=== PATIENT | male | born 1960 | race African-American/Black ===

== ENCOUNTER 2017-01-14 21:22 | Emergency (ER) | payer MEDICAID ==
[~2017-01-14] VITALS: Ht 175.3 cm; Wt 91.0 kg
[~2017-01-14 21:22] MED LIST: ASPI-1035 PO; OMEP20TA80 PO
[2017-01-14 22:04] LABS: BASOPHILS % 0.9 % (0.0-2.0); EOSINOPHILS % 0.5 % (0.0-5.0); HEMATOCRIT. 44.4 % (42.0-52.0); LYMPHOCYTES % 22.7 % (20.0-50.0); MEAN CORPUSCULAR HEMOGLOBIN 29.8 pg (28.0-32.0); MEAN CORPUSCULAR HGB CONC 33.9 g/dL (31.0-37.0); MEAN CORPUSCULAR VOLUME 88.1 fL (80.0-94.0); MEAN PLATELET VOLUME 8.8 fl (7.4-10.4); MONOCYTES % 5.9 % (2.0-8.0); PLATELET 267 x1000/uL (130-400); RED BLOOD CELL COUNT 5.04 mill/uL (4.7-6.1); RED CELL DISTRIBUTION WIDTH 12.7 % (11.6-14.6); WHITE BLOOD COUNT 14.6 x1000/uL (4.5-11.0)
[2017-01-14 22:15] LABS: ALANINE AMINOTRANSFERASE 31 IU/L (13-61); ALBUMIN 3.8 g/dL (3.4-5.0); ANION GAP 22; CALCIUM 9.5 mg/dL (8.5-10.1); CARBON DIOXIDE 22 mEq/L (21-32); CHLORIDE 95 mEq/L (98-107); INDEX HEMOLYSI 1 (1-3); INDEX ICTERIC 1 (1-4); INDEX LIPEMIC 1 (1-3); UREA NITROGEN BLOOD 11 mg/dL (7-21); eGFR > 60 mL/min (>60)
[2017-01-14] MEDS ORDERED: POTASSIUM CHLORIDE 40MEQ/30ML UDC PO SCH (23:00)
[2017-01-14] MEDS ORDERED: POTASSIUM CHLORIDE 40MEQ/30ML UDC PO ONE (23:00)
[2017-01-14] MEDS ORDERED: POTASSIUM CHLORIDE 20MEQ TABLET SR PO NR (23:19)
[2017-01-15] MEDS ORDERED: POTASSIUM CHLORIDE 40MEQ/30ML UDC PO ONE (01:00)
[2017-01-15] MEDS ORDERED: POTASSIUM CHLORIDE 20MEQ TABLET SR PO NR (01:15)
[2017-01-15 01:47] VITALS: BP 140/92
== END 2017-01-15 01:40 | disposition home or self-care (01) ==
LOC: ER 21:22
DX: R56.9 Unspecified convulsions (principal); E87.6 Hypokalemia; F10.20 Alcohol dependence, uncomplicated; I10 Essential (primary) hypertension; Z79.82 Long term (current) use of aspirin; Z79.899 Other long term (current) drug therapy
CPT/HCPCS: 36415; 70450; 80053; 85025; 93005; 99285; Z7610

== ENCOUNTER 2017-05-16 10:59 | Emergency (ER) | payer MEDICAID ==
[~2017-05-16] VITALS: Ht 175.3 cm; Wt 86.0 kg
[~2017-05-16 10:59] MED LIST changes: -ASPI-1035 PO; +ASPI-1159 PO
[2017-05-16 15:58] LABS: BASOPHILS % 0.2 % (0.0-2.0); EOSINOPHILS % 0.7 % (0.0-5.0); HEMATOCRIT. 42.9 % (42.0-52.0); HEMOGLOBIN. 15.1 g/dL (14.0-18.0); LYMPHOCYTES % 37.5 % (20.0-50.0); MEAN CORPUSCULAR VOLUME 88.2 fL (80.0-94.0); MEAN PLATELET VOLUME 8.2 fl (7.4-10.4); MONOCYTES % 9.3 % (2.0-8.0); NEUTROPHILS % 52.3 % (40.0-76.0); PLATELET 254 x1000/uL (130-400); RED BLOOD CELL COUNT 4.87 mill/uL (4.7-6.1); RED CELL DISTRIBUTION WIDTH 13.1 % (11.6-14.6)
[2017-05-16 16:12] LABS: CARBON DIOXIDE 27 mEq/L (21-32); CHLORIDE 96 mEq/L (98-107)
[2017-05-16] MEDS ORDERED: HYDROCHLOROTHIAZIDE 25MG TABLET PO ONE (18:15)
[2017-05-16 19:05] VITALS: BP 176/96
== END 2017-05-16 19:23 | disposition home or self-care (01) ==
LOC: ER 15:50
DX: I10 Essential (primary) hypertension (principal); Z88.8 Allergy status to other drugs, medicaments and biological substances; Z79.82 Long term (current) use of aspirin
CPT/HCPCS: 36415; 80053; 85025; 99284

== ENCOUNTER 2017-08-11 17:09 | Emergency (ER) | payer MEDICAID ==
[~2017-08-11] VITALS: Ht 175.3 cm; Wt 96.0 kg
[~2017-08-11 17:09] MED LIST changes: +OMEP20TA2 PO; -OMEP20TA80 PO
[2017-08-11] MEDS ORDERED: TETANUS, DIPHTHERIA, PERTUSSIS VAC/PF 0.5ML (>7YR OLD) IM ONE (18:00)
[2017-08-11] MEDS ORDERED: VANCOMYCIN 1 G PREMIX 200 ML IV SCH (18:30)
[2017-08-11] MEDS ORDERED: CLONIDINE 0.1MG TABLET PO ONE (20:15)
[2017-08-11 21:45] VITALS: BP 159/99
== END 2017-08-11 21:56 | disposition home or self-care (01) ==
LOC: ER 17:42
DX: L03.114 Cellulitis of left upper limb (principal); I10 Essential (primary) hypertension; Z79.82 Long term (current) use of aspirin; Z87.891 Personal history of nicotine dependence; Z88.8 Allergy status to other drugs, medicaments and biological substances; Z98.890 Other specified postprocedural states; W23.0XXA Caught, crushed, jammed, or pinched between moving objects, initial encounter; Y93.89 Activity, other specified; Y99.8 Other external cause status; Y92.89 Other specified places as the place of occurrence of the external cause
CPT/HCPCS: 73130; 90471; 90715; 96365; 99284; J3370; Z7610

== ENCOUNTER 2017-09-20 09:46 | Emergency (ER) | payer MEDICAID ==
[~2017-09-20] VITALS: Ht 175.3 cm; Wt 88.0 kg
[2017-09-20 11:54] VITALS: BP 127/89
== END 2017-09-20 12:16 | disposition home or self-care (01) ==
LOC: ER 09:48
DX: R42 Dizziness and giddiness (principal); R51 Headache; T42.0X5A Adverse effect of hydantoin derivatives, initial encounter; Y92.89 Other specified places as the place of occurrence of the external cause; G40.909 Epilepsy, unspecified, not intractable, without status epilepticus; I10 Essential (primary) hypertension; Z79.82 Long term (current) use of aspirin; Z88.8 Allergy status to other drugs, medicaments and biological substances; Z98.890 Other specified postprocedural states
CPT/HCPCS: 36415; 70450; 80185; 99285

== ENCOUNTER 2018-02-22 09:10 | Emergency (ER) | payer MEDICAID ==
[~2018-02-22] VITALS: Ht 175.3 cm; Wt 82.0 kg
[2018-02-22] MEDS ORDERED: ACETAMINOPHEN WITH CODEINE 300/30MG TABLET PO ONE (10:15)
[2018-02-22 11:55] VITALS: BP 128/79
== END 2018-02-22 11:58 | disposition home or self-care (01) ==
LOC: ER 11:15
DX: S20.212A Contusion of left front wall of thorax, initial encounter (principal); I10 Essential (primary) hypertension; E78.00 Pure hypercholesterolemia, unspecified; R56.9 Unspecified convulsions; Z88.8 Allergy status to other drugs, medicaments and biological substances; Z79.82 Long term (current) use of aspirin; Z87.891 Personal history of nicotine dependence; W11.XXXA Fall on and from ladder, initial encounter; Y93.89 Activity, other specified; Y92.89 Other specified places as the place of occurrence of the external cause; Y99.8 Other external cause status
CPT/HCPCS: 71101; 93005; 99284; Z7610

== ENCOUNTER 2019-11-05 14:40 | Emergency (ER) | payer MEDICAID ==
[~2019-11-05] VITALS: Ht 175.3 cm; Wt 82.0 kg
[~2019-11-05 14:40] MED LIST changes: -ASPI-1159 PO; +ASPI-1497 PO
[2019-11-05] MEDS ORDERED: IBUPROFEN 600MG TABLET PO ONE (17:30)
[2019-11-05 18:12] VITALS: BP 137/78
== END 2019-11-05 18:13 | disposition home or self-care (01) ==
LOC: ER 14:40
DX: M54.5 Low back pain (principal); I10 Essential (primary) hypertension; G40.909 Epilepsy, unspecified, not intractable, without status epilepticus; Z98.890 Other specified postprocedural states; Z79.82 Long term (current) use of aspirin; Z88.8 Allergy status to other drugs, medicaments and biological substances
CPT/HCPCS: 72100; 99283

== ENCOUNTER 2023-01-03 21:40 | Emergency (ER) | payer MEDICARE, MEDICAID ==
[~2023-01-03 21:40] MED LIST changes: -ASPI-1497 PO; +CYCL10TA21 PO; +FERR325T6 PO; +IBUP-2030 PO; +KEPP500 PO; +METF-873 PO; +METO-539 PO; -OMEP20TA2 PO; +PANT40TA51 MT; +PHEN100C12 PO; +PHEN50TA4 PO; +SIMV10TA97 PO; +SUCR1TAB MT
== END 2023-01-03 22:02 | disposition left against medical advice (07) ==
LOC: ER 21:40
DX: Z53.21 Procedure and treatment not carried out due to patient leaving prior to being seen by health care provider (principal)

== ENCOUNTER 2024-09-28 22:03 | Emergency (ER) | payer OTHER, MEDICAID ==
[~2024-09-28] VITALS: Ht 170.2 cm; Wt 82.0 kg
[~2024-09-28 22:03] MED LIST changes: +METF-1149 PO; -METF-873 PO
[2024-09-28 22:14] VITALS: O2SAT 98
[2024-09-28] MEDS ORDERED: VANCOMYCIN 1G PREMIX 200 ML IV ONE (22:15)
[2024-09-28] MEDS: PIPERACILLIN/TAZO 3.375G/50ML 50 ML IV ONE (23:20)
[2024-09-28 23:37] LABS: BASOPHILS % 0.5 % (0.0-2.0); EOSINOPHILS % 0.1 % (0.0-5.0); HEMATOCRIT. 42.8 % (42.0-52.0); HEMOGLOBIN. 14.5 g/dL (14.0-18.0); LYMPHOCYTES % 60.2 % (20.0-50.0); MEAN CORPUSCULAR HEMOGLOBIN 33.1 pg (28.0-32.0); MEAN CORPUSCULAR VOLUME 97.4 fL (80.0-94.0); MEAN PLATELET VOLUME 8.2 fl (7.4-10.4); MONOCYTES % 5.1 % (2.0-8.0); NEUTROPHILS % 34.1 % (40.0-76.0); PLATELET 151 x1000/uL (130-400); RED BLOOD CELL COUNT 4.39 mill/uL (4.7-6.1); RED CELL DISTRIBUTION WIDTH 13.5 % (11.6-14.6)
[2024-09-28] MEDS: SODIUM CHLORIDE 0.9% 1,000 ML IV ONE (23:39)
[2024-09-28 23:43] LABS: CHLORIDE 102 mEq/L (98-107); POTASSIUM 4.2 mEq/L (3.5-5.1); SODIUM 136 mEq/L (136-145)
[2024-09-28 23:44] LABS: CARBON DIOXIDE 18 mEq/L (21-32)
[2024-09-28 23:45] LABS: CALCIUM 9.6 mg/dL (8.7-10.4)
[2024-09-28 23:49] LABS: CREATININE 2.6 mg/dL (0.6-1.3); GLUCOSE 124 mg/dL (70-105); INR 1.1; PROTHROMBIN TIME 11.8 sec (9.6-11.0); UREA NITROGEN BLOOD 71 mg/dL (9-23)
[2024-09-28 23:50] LABS: TROPONIN I HIGH SENSITIVITY 4 ng/L (3.0-53)
[2024-09-28 23:53] LABS: CLARITY URINE CLEAR (CLEAR); COLOR URINE YELLOW (YELLOW); GLUCOSE URINE NEGATIVE (NEGATIVE); KETONES URINE NEGATIVE (NEGATIVE); LEUKOCYTE ESTERASE URINE NEGATIVE (NEGATIVE); NITRITE URINE NEGATIVE (NEGATIVE); OCCULT BLOOD URINE NEGATIVE (NEGATIVE); PROTEIN URINE NEGATIVE (NEGATIVE); SPECIFIC GRAVITY URINE 1.015 (1.005-1.030); UROBILINOGEN URINE 0.2 E.U./dL (0.2-1.0)
[2024-09-29 00:06] LABS: LACTIC ACID 3.8 mmol/L (0.4-2.0)
[2024-09-29] MEDS: SODIUM CHLORIDE 0.9% 1,000 ML IV ONE (01:23)
[2024-09-29] MEDS: SODIUM CHLORIDE 0.9% 500 ML IV ONE (01:37)
[2024-09-29 02:17] LABS: LACTIC ACID 4.5 mmol/L (0.4-2.0)
[2024-09-29 03:44] VITALS: TEMP 37.05852
[2024-09-29] MEDS: VANCOMYCIN 1G PREMIX 200 ML IV NR (03:44)
[2024-09-29 03:55] LABS: TROPONIN I HIGH SENSITIVITY < 4 ng/L (3.0-53)
[2024-09-29 07:40] VITALS: BP 106/84; PULSE 55; RESP 18; O2SAT 100
== END 2024-09-29 08:40 | disposition left against medical advice (07) ==
LOC: ER 22:03 → EDBEDREQ 09-29 00:55 → EDBEDREQTM 09-29 00:55 → ER 09-29 08:40
DX: R53.1 Weakness (principal); N17.9 Acute kidney failure, unspecified; I10 Essential (primary) hypertension; Z88.8 Allergy status to other drugs, medicaments and biological substances; Z79.84 Long term (current) use of oral hypoglycemic drugs; Z79.1 Long term (current) use of non-steroidal anti-inflammatories (NSAID); I95.9 Hypotension, unspecified
CPT/HCPCS: 99291; 96365; 96366; 80048; 81003; 83880; 83605; 85025; 85610; 87040; 87086; 84484; 36415; 84145; 71045; 93005; 76770; J2543; J7030 ×2; J3370; J7040